=== PATIENT | female | born 1945 | race Caucasian/White ===

== ENCOUNTER 2020-12-26 13:17 | Emergency (ER) | payer OTHER, MEDICARE ==
[2020-12-26] MEDS ORDERED: Acetaminophen 500 MG TAB ONE (14:01)
[2020-12-26] MEDS ORDERED: Boostrix 0.5 ML (Tdap) VIAL ONE (14:16)
== END 2020-12-26 14:30 | disposition home or self-care (01) ==
LOC: MADERS 13:17
DX: S01.21XA Laceration without foreign body of nose, initial encounter (principal); F17.210 Nicotine dependence, cigarettes, uncomplicated; W01.10XA Fall on same level from slipping, tripping and stumbling with subsequent striking against unspecified object, initial encounter; Y92.008 Other place in unspecified non-institutional (private) residence as the place of occurrence of the external cause
CPT/HCPCS: 70450; 70486; 72125; 90471; 90715

== ENCOUNTER 2021-07-30 09:29 | Emergency (ER) | payer MEDICARE ==
[2021-07-30] MEDS ORDERED: Sodium Bicarb 50 MEQ/50 ML Abboject 8.4% SYRINGE ONE (14:15)
[2021-07-30] MEDS ORDERED: EPINEPHrine 1 MG/10 ML Abboject SYRINGE ONE (14:15)
== END 2021-07-30 13:11 | disposition expired ==
LOC: MADERS 09:29
DX: I46.9 Cardiac arrest, cause unspecified (principal); F17.210 Nicotine dependence, cigarettes, uncomplicated
CPT/HCPCS: 31500; 36416; 92950; 96374; 96375; J0171